=== PATIENT | female | born 1980 | race Caucasian/White ===

== ENCOUNTER → 2020-04-01 16:21 | Outpatient (CLI) | payer BC, SELFPAY ==
--- NOTE | ~2020-04-01 | MM_ITS ---
EXAMINATION: MM screening [place] [facility] w [facility] HISTORY: Screening mammogram TECHNIQUE: Craniocaudal and mediolateral oblique 3-D tomosynthesis images were obtained and synthetic 2-D images were generated. CAD analysis was submitted and interpreted. COMPARISON: No prior mammogram is available for comparison at this institution. BREAST PARENCHYMAL COMPOSITION: There are scattered areas of fibroglandular density. FINDINGS: There are mammographic asymmetries on the left, particularly in the lower inner quadrant. D iagnostic left mammogram and left breast ultrasound examination are recommended, No suspicious mass or architectural distortion, malignant calcification, skin thickening or retractio n of either breast is noted otherwise. IMPRESSION: 1. Left breast mammographic asymmetry 2. Recommend diagnostic left mammogram and left breast ultrasound examination. BI-RADS Category 0: Incomplete: Needs additional imaging evaluation. Reviewed, dictated and finalized at location A.
== END ==
PROVIDERS: Visit Provider Nurse Practitioner Obstetrics & Gynecology
DX: Z12.31 Encounter for screening mammogram for malignant neoplasm of breast (principal); R92.8 Other abnormal and inconclusive findings on diagnostic imaging of breast
CPT/HCPCS: 77063; 77067

== ENCOUNTER → 2020-04-17 08:28 | Outpatient (CLI) | payer BC, SELFPAY ==
--- NOTE | ~2020-04-17 | MMUS_ITS ---
EXAMINATION: MM diagnostic mammo unilat LT, US breast LT complete HISTORY: Follow-up left breast asymmetry TECHNIQUE: Additional 3-D tomosynthesis images of the left breast were performed and synthetic 2-D im ages were generated. CAD analysis was submitted and interpreted. High resolution complete left breast ultrasound was performed. COMPARISON: None BREAST PARENCHYMAL COMPOSITION: BREAST PARENCHYMAL COMPOSITION: There are scattered areas of fibroglandular density. FINDINGS: MAMMOGRAPHIC FINDINGS: There is a persistent focal asymmetry in the upper inner quadrant of the left breast. No suspicious c alcifications are identified. ULTRASOUND: High-resolution Limited complete left breast ultrasound: At 10:00, 6.5 cm from the nipple, there is a n irregular shaped hypoechoic mass with irregular margins measuring 11 x 8 x 5 mm. No internal vascul arity or posterior features. IMPRESSION: 1. Irregular shaped 11 mm mass of the left breast at 10:00, 6.5 cm from the nipple corresponding to t he mammographic finding. 2. Ultrasound-guided left breast biopsy recommended. BI-RADS category 4, suspicious findings. Reviewed, dictated and finalized at location A. 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 Irregular shaped 11 mm mass of the left breast at 10:00, 6.5 cm from the nip ple corresponding to the mammographic finding. 2. Ultrasound-guided left breast biopsy recommended. BI-RADS category 4, suspicious findings.
== END ==
PROVIDERS: Visit Provider Nurse Practitioner Obstetrics & Gynecology
DX: R92.8 Other abnormal and inconclusive findings on diagnostic imaging of breast (principal)
CPT/HCPCS: 76641; 77065

== ENCOUNTER 2023-03-12 09:13 | Outpatient (CLI) | payer BC, SELFPAY ==
[2023-03-12 16:35] LABS: Basophils Percent Auto 0.8 % (0.2-1.2); Eosinophils Absolute Auto 0.1 K/mm3 (0-0.3); Eosinophils Percent Auto 1.9 % (0-4.4); Hematocrit 39.3 % (37.0-47.0); Immature Granulocyte Absolute 0.01 K/mm3 (0.00-0.031); Immature Granulocyte Percent A 0.2 % (0-0.5); Lymphocytes Absolute Auto 1.79 K/mm3 (0.9-3.2); Lymphocytes Percent Auto 34.7 % (18.3-44.2); Mean Corpuscular HGB Conc 33.1 g/dl (32-36); Mean Corpuscular Hemoglobin 30.5 pg (26-34); Mean Corpuscular Volume 92.3 fl (80-100); Mean Platelet Volume 10.8 fl (7.4-10.4); Monocytes Absolute Auto 0.4 K/mm3 (0.1-0.6); Monocytes Percent Auto 7.4 % (2.6-8.5); Neutrophils Absolute Auto 2.8 K/mm3 (1.3-6.7); Platelet Count Result 221 k/mm3 (150-375); Red Blood Count 4.26 M/mm3 (4.2-5.4); Red Cell Distribution Width 11.7 % (11.5-14.5); White Blood Count 5.2 K/mm3 (4.5-10.0)
[2023-03-12 19:44] LABS: Vitamin D 25 Hydroxy 58.7 ng/mL
[2023-03-12 19:54] LABS: Alanine Aminotransferase 29 U/L (6-35); Albumin Level 4.7 g/dL (3.5-5.1); Alkaline Phosphatase 44 U/L (38-126); Anion Gap 6 mmol/L (8-16); Aspartate Amino Transferase 29 U/L (14-36); Bilirubin,Total 0.7 mg/dL (0.2-1.3); Blood Urea Nitrogen 18 mg/dL (7-17); Calcium 9.3 mg/dL (8.4-10.2); Carbon Dioxide 28 mmol/L (22-30); Chloride 104 mmol/L (98-107); Cholesterol 183 mg/dL (0-200); Estimated Glomerular Filt Rate > 60; Glucose 90 mg/dL (65-110); HDL Direct 47 mg/dL; Potassium 4.1 mmol/L (3.4-5.0); Sodium 138 mmol/L (137-145); Triglycerides 98 mg/dL (<150)
[2023-03-12 20:04] LABS: LDL Cholesterol Direct 101 mg/dL
[2023-03-12 20:34] LABS: Hemoglobin A1C 4.7 % (<5.7)
== END 2023-03-12 09:14 | disposition home or self-care (01) ==
LOC: ANHGOSHLAB 09:14
PROVIDERS: PCP Family Medicine; Visit Provider Nurse Practitioner Family
DX: I10 Essential (primary) hypertension (principal); Z13.21 Encounter for screening for nutritional disorder; Z13.29 Encounter for screening for other suspected endocrine disorder; Z00.00 Encounter for general adult medical examination without abnormal findings; Z13.220 Encounter for screening for lipoid disorders; Z13.1 Encounter for screening for diabetes mellitus
CPT/HCPCS: 36415; 80053; 80061; 82306; 83036; 84443; 85025

== ENCOUNTER 2024-08-18 09:07 | Outpatient (CLI) | payer BC, SELFPAY ==
--- OUTSIDE RECORDS SUMMARY | 2024-08-18 09:32 | XMS_ITS | Data Portability ---
Author Organization [facility] [place] Address [address] [place] [address] Care Team Providers Care Hospice Patient Care Secretary Name Role Phone EUGENIA KHALIL Primary Care Provider Assessment Encounter Date Assessment Date Assessment LastModified by Organization Details LastModified Time 02/14/2020 02/14/2020 Annual gynecological exam performed. Patient will come back in a year unless there are new symptoms. [email or web address] Not available 02/14/2020 10:12:55 02/18/2021 02/18/2021 Annual gynecological exam performed. Patient will come back in a year unless there are new symptoms. [email or web address] Not available 02/18/2021 09:49:37 03/17/2022 03/17/2022 Annual gynecological exam performed. Patient will come back in a year unless there are new symptoms. Not available 03/17/2022 09:38:37 02/22/2024 02/22/2024 Annual gynecological exam performed. Patient will come back in a year unless there are new symptoms. [email or web address] Not available 02/22/2024 09:35:32 Plan of Treatment Reminders Order Date Submit Date Provider Last Modified By Organization Details Last Modified Time Details Appointments None record ed. Lab None record ed. Referral None record ed. Procedures None record ed. Surgeries None record ed. Imaging None record ed. Medication Orders None record ed. Patient TargetsNo targets recorded. Patient Instructions Encounter Date Encounter Id Patient Instructions Last Modified By Organization Details Last Modified Time 02/14/2020 [id number] [email or web address] Not available 10:36:17 Reason for Referral None Reported. Results Created Date Observation Date Name Description Value Unit Range Abnormal Flag Note LastModifiedBy Organization Detail LastModifiedTime 02/14/20 20 02/16/2020 pap, LB Pap test thin prep Negati ve for Intrae pithel ial Lesion or Malign norberto normal ACCES RAMON #: [id number] Sourc e: Cervi madhavi/E ndoce rvica l LMP: 10/31 Date Taken : 02/13 Speci men Type: ThinP rep Vial Date Repor jorge: Clini madhavi Data: Cytot ech: Ronald Campo x, CT( CP) Date Repor jorge: Speci men Adequ acy: Satis facto ry for evalu ation Endoc ervic al/tr ansfo rmati on zone compo nent prese nt Gener al Categ oriza tion: NEGAT KIRAN FOR INTRA EPITH ELIAL LESIO N OR MALIG OKSANA This speci men has been valerie zed by the ThinP rep Imagi ng Syste m, an inter activ e compu ter syste m which piyush ts the lab in the scree ketty of ThinP rep Pap Test slide sPamela baxter imagi ng, the slide was revie wed by a Cytot echno logis t and/o r Patho logis t. D N A A S S A Y S R E P O R T TEST NAME RESUL TS ----- ---- ----- -- HPV High Risk Scree n (TMA) ThinP rep Vial The human papil lomav irus (HPV) High Risk Scree n is an FDA-a pprov ed in-vi tro ampli fied nucle ic acid test for the quali tativ e detec tion of E6/E7 viral mRNA. Resul ts shoul d be corre lated with patie nt prese ntati on, histo ry, cervi madhavi cytol ogy and other clini madhavi and labor atory findi ngs. See https ://SitScape/s ites/ defau lt/fi les/2 018-0 3/AW- 43880 _002_ 01.pd f for furth er infor matio n. Test perfo rmed by [facility], d/b/a [facility], [address], [place] [address] , Malika Davies ra, DO, Labor Pollen [facility] tor. HPV High Risk *HPV NOT DETEC JORGE (TYPE S 16, 18, 31, 33, 35, 39, 45, 51, 52, 56, 58, 59, 66, 68) *HPV: The human papil lomav irus (HPV) High Risk Griselda dyer is an FDA-a pprov ed in-vi tro ampli fied nucle ic acid test for the quali tativ e detec tion of E6/E7 viral mRNA. Resul ts shoul d be corre lated with patie nt prese ntati on, histo ry, cervi madhavi cytol ogy and other clini madhavi and labor atory findi ngs. See https ://SitScape/s ites/ defau lt/fi les/2 018-0 3/AW- 24038 _002_ 01.pd f for [facility] tae infor kailavignesh gomez. Test perfo rmed by [facility], d/b/a [employer], [address], [place] [address] , Malika Davies ra, DO, Labor Pollen [facility] tor. End of t Techn ical servi ivon provi ded by [facility] [facility], d/b/a [employer] [employer] [facility], [address] [place] [address] Kervin Cooley MD, [facility]. Case revie wed and diagn osis rende red at [facility], d/b/a [employer] [employer] [facility], [address] [place] [address] Kervin Cooley MD, [facility]. CONFI DENTI AL Not Available [facility] ([facility]) [address], [place], [address], 02/16/2020 09:23:04 02/14/20 20 02/15/2020 HPV DNA, high- risk HPV high risk NOT DETECT ED normal Not Available [facility] ([facility]) [address], [place], [address], 02/16/2020 09:23:04 02/19/20 21 02/18/2021 IMAGE GUIDE D PAP AND HPV REGAR DLESS image guided Pap, HPV regardless of Pap result SEE RESULT S BELOW CASE REPOR T: Cytol ogy Gynec ologi madhavi Repor t Case: [id number] Autho mian sarmiento Provi barbara: Javier maxi , Kristina Calderon cted: 02/18 1424 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 Order ing Locat ion: [place] Patho log[facility] Recei rodriguez: 02/19 0055 First Scree n: Aliza Naqvi ret, CT Speci men: Scree ketty Pap - Image d, Cervi x STATE MENT OF ADEQU ACY: Satis facto ry for evalu ation Trans forma tion zone compo nent prese nt FINAL DIAGN OSIS: Negat kiran for Intra epith elial Lesvignesh dyer or Sarah recinos (NIL) Elect lina guzmán mario d by Aliza Naqvi ret, CT on 021 at 2:28 PM ----- ----- ----- ----- ----- ----- ----- ----- ----- ----- ----- ----- ----- ----- ----- ----- ----- ---- HPV RESUL TS: HPV mRNA E6/E7 : No HPV mRNA Detec jorge NOTE: This high risk HPV mRNA assay detec ts fourt een high- risk HPV types (16, 18, 31, 33, 35, 39, 45, 51, 52, 56, 58, 59, 66, 68) witho ut diffe renti ation . COMME NT: Note: This speci men was revie wed by a Cytot echno logis t and/o r Patho logis t (as indic ated in this repor t) after evalu ation using the Thinp rep Imagi ng Syste m. CLINI MADHAVI INFOR MATIO N: Menst rual Statu s: LMP (if appli cable ): 021 Clini madhavi Histo ry/Pr eviou s Pap: Type of Neopl demarcus (if appli cable ): Signi fican t Clini madhavi Findi ngs: Other Histo ry: Hormo steve (if appli cable ): PAP EDUCA JOSE ALFREDO L NOTE: The Pap Test is a scree ketty test with an inher ent false negat kiran rate. Liqui d-bas e sampl ing may decre ase, but will not elimi suhas, false negat kiran resul ts. A negat kiran resul t does not precl ude the prese nce and/o r devel opmen t of disea se, since the prese nce of abnor mal cells in the sampl e depen ds on the locat ion of the lesio n and sampl ing techn ique. Joaquin nued regul ar scree ketty is the best metho d of cance r preve ntion . If repor jorge cytol ogic findi ng do not corre late with physi madhavi and/o r histo rical findi ngs, furth er inves tigat ion is recom jerry d, as clini jasiel barahona nted. 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 Elect madhukarley guzmán mario d by Aliza Naqvi ret, CT on 03/24 at 11:15 AM ----- ----- ----- ----- ----- ----- ----- ----- ----- ----- ----- ----- ----- ----- ----- ----- ----- ---- HPV RESUL TS: HPV mRNA E6/E7 : No HPV mRNA Detec jorge NOTE: This high risk HPV mRNA assay detec ts fourt een high- risk HPV types (16, 18, 31, 33, 35, 39, 45, 51, 52, 56, 58, 59, 66, 68) witho ut diffe renti ation . COMME NT: Note: This speci men was revie wed by a Cytot echno logis t and/o r Patho logis t (as indic ated in this repor t) after evalu ation using the Thinp rep Imagi ng Syste m. CLINI MADHAVI INFOR MATIO N: Menst rual Statu s: LMP (if appli cable ): Clini madhavi Histo ry/Pr eviou s Pap: Type of Neopl demarcus (if appli cable ): Signi fican t Clini madhavi Findi ngs: Other Histo ry: Hormo steve (if appli cable ): PAP EDUCA JOSE ALFREDO L NOTE: The Pap Test is a scree ketty test with an inher ent false negat kiran rate. Liqui d-bas ed sampl ing may decre ase, but will not elimi suhas, false negat kiran resul ts. A negat kiran resul t does not precl ude the prese nce and/o r devel opmen t of disea se, since the prese nce of abnor mal cells in the sampl e depen ds on the locat ion of the lesio n and sampl ing techn ique. Joaquin nued regul ar scree ketty is the best metho d of canche r preve ntion . If repor jorge cytol ogic findi ng do not corre late with physi madhavi and/o r histo rical findi ngs, furth er inves tigat ion is recom jerry d, as clini jasiel barahona nted. Not Available [facility] [address], [place], [address], 03/24/2022 12:17:27 02/22/20 24 02/22/2024 IMAGE GUIDE D PAP AND HPV REGAR DLESS image guided Pap, HPV regardless of Pap result SEE RESULT S BELOW CASE REPOR T: Cytol ogy Gynec ologi madhavi Repor t Case: [id number] Autho mian torsten Provi barbara: Emily Griffith MD Colle cted: 02/21 0921 Order ing Locat ion: [place] Patho [facility] Recei rodriguez: 02/22 1005 First Grisleda n: Jeanette Murphy een: Yanely Dunn, CT Speci men: Griselda ketty Pap - Image d, Cervi x STATE MENT OF ADEQU ACY: UNSAT ISFAC TORY SPECI MEN ----- ----- ----- ----- ----- ----- ----- ----- ----- ----- ----- ----- ----- ----- ----- ----- ----- ---- FINAL DIAGN OSIS: Unsat isfac tory for evalu ation . Inade quate squam ous epith elial compo nent for diagn osis. Elect lina parkse d by Yanely Dunn, CT on 2023 at 7:52 AM ----- ----- ----- ----- ----- ----- ----- ----- ----- ----- ----- ----- ----- ----- ----- ----- ----- ---- HPV RESUL TS: HPV mRNA E6/E7 : No HPV mRNA Detec jorge NOTE: This high risk HPV mRNA assay detec ts fourt een high- risk HPV types (16, 18, 31, 33, 35, 39, 45, 51, 52, 56, 58, 59, 66, 68) witho ut diffe renti ation . COMME NT: This speci men was revie wed by a Cytot echno logis t and/o r Patho logis t (as indic ated in this repor t) after evalu ation using the Thinp rep Imagi ng Syste m. NOTE: A repro cessi ng proce dure was perfo rmed and the addit ional slide confi rocio the diagn osis of [facility] for evalu ation . CLINI MADHAVI INFOR MATIO N: Menst rual Statu s: LMP (if appli cable ): Clini madhavi Histo ry/Pr eviou s Pap: Type of Neopl demarcus (if appli cable ): Signi fican t Clini madhavi Findi ngs: Other Histo ry: Hormo steve (if appli cable ): Not Available [facility] (Lab) [address], [place], [address], 03/03/2024 08:57:42 04/01/20 20 04/01/2020 MAMMO , scree ketty, bilat eral No observ ation record ed. [facility] [address], [place], [address], 04/03/2020 09:46:18 04/02/20 20 04/01/2020 MAMMO , scree ketty, bilat eral No observ ation record ed. KIARA [place] [facility] [address], [place], [address], 04/03/2020 09:46:19 04/17/20 20 04/17/2020 MAMMO , diagn ostic , unila teral No observ ation record ed. [facility] [address], [place], [address], 04/19/2020 16:08:23 04/18/20 20 04/17/2020 MAMMO , diagn ostic , unila teral No observ ation record ed. [facility] [address], [place], [address], 04/19/2020 16:08:23 05/29/20 20 05/29/2020 biops y, breas t (PROC ) No observ ation record ed. [address], [address], 05/30/2020 11:59:10 05/29/20 20 05/29/2020 biops y, breas t (PROC ) No observ ation record ed. [address], [address], 05/30/2020 11:59:47 06/04/20 20 05/29/2020 biops y, breas t (PROC ) No observ ation record ed. [address], [address], 06/11/2020 18:16:27 06/04/20 20 05/29/2020 biops y, breas t (PROC ) No observ ation record ed. [address], [address], 06/11/2020 18:15:46 04/02/20 21 04/02/2021 MAMMO , diagn ostic , unila teral No observ ation record ed. [facility] [address], [place], [address], 04/02/2021 16:28:37 04/02/20 21 04/02/2021 MAMMO , diagn ostic , unila teral No observ ation record ed. [facility] [address], [place], [address], 04/03/2021 11:44:57 Result Notes None recorded. Problems Name Problem SNOMED Code Status Onset Date Resolution Date Notes Provider Name and Address Organization Details Recorded Time SNOMED CT Concept Completed 201802/18/2021 Encntr for general adult medical exam w/o abnormal findings ;Recorde d Elsewher e: No Locat ion: [facility] S ource: [employer] [employer] alem: N Jennyferti ce ID: 0001 Jg lable Time: 08:30:00 AM Claritza Marley [facility] 09:56:05 Removal of intraute rine device Completed 201302/18/2021 REMOVAL OF IUD;Timbo rded Elsewher e: No Locat ion: [facility] S ource: [facility] alem: N Jennyferti ce ID: 0001 Jg lable Time: 01:45:00 PM Claritza Marley [facility] 09:56:00 Contrace ptive sheath status [id number] Completed 201802/18/2021 Encounte r for routine checking of intraute rine contrace p dev;Timbo rded Elsewher e: No Locat ion: [facility] N Jennyferti ce ID: 0001 Jg lable Time: 08:15:00 AM Claritza Marley [facility] 1 09:55:40 Uses IUD (intraut erine device) contrace ption [id number] Completed 201302/18/2021 Surveill ance of intraute rine contrace ptive device;R ecorded Elsewher e: No Locat ion: [facility] S ource: [facility] alem: N Jennyferti ce ID: 0001 Jg lable Time: 03:45:00 PM Claritza Marley [facility] [address] 09:55:[address] Concept Completed 201602/18/2021 Well woman check w/o abnormal finding; Recorded Elsewher e: No Locat ion: [facility] S ource: [employer] alem: N Practi ce ID: 0001 Jg lable Time: 08:30:00 AM Claritza murray [facility] 1 09:56:07 Increase d frequenc y of urinatio n [id number] Completed 201402/18/2021 Urinary frequenc y;Record ed Elsewher e: No Locat ion: [facility]: N Practi ce ID: 0001 Jg lable Time: 08:30:00 AM Claritza murray [facility] 1 09:55:47 Contusio n of trunk [id number] Completed 201602/18/2021 Contusio n of lower back and pelvis, sequela; Recorded Elsewher e: No Locat ion: [facility]: N Practi ce ID: 0001 Jg lable Time: 08:30:00 AM Claritza murray [facility] 1 09:55:42 Dysfunct ional uterine bleeding Completed 201302/18/2021 Unspecif ied disorder s of menstrua tion and other abnormal bleeding from female genital tract;Re corded Elsewher e: No Locat ion: [facility]: N Practi ce ID: 0001 Jg lable Time: 03:45:00 PM Claritza murray [facility] 1 09:55:45 Speciali zed medical examinat ion Completed 201102/18/2021 Routine gynecolo gical examinat ion;Prac adamaris ID: 0001 Claritza murray [facility] 1 09:56:09 Screenin g for malignan t neoplasm of cervix Completed 201102/18/2021 Pap Smear;Pr actice ID: 0001 Claritza murray [facility] 1 09:56:03 Insertio n of intraute rine contrace ptive device Completed 201302/18/2021 INSERTIO N OF IUD;Prac adamaris ID: 0001 Claritza murray [facility] 1 09:55:50 Pregnanc y test negative [id number] Completed 201302/18/2021 Negative Pregnanc y Test;Pra ctice ID: 0001 Claritza murray [facility] 09:55:57 Overweig ht [id number] Completed 201402/18/2021 Overweig ht;Pract ice ID: 0001 Claritza Marley [facility] 09:55:55 Problem Notes None recorded. Procedures Surgical History Date Name Laterality Status Provider Name and Address Organization Details Recorded Time 3 Date of Last Mammogram completed Denise Nathan [facility] 02/22/2024 09:36:35 1 completed [facility] 03/17/2022 09:39:21 1 Date of Last Pap Smear completed [facility] 03/17/2022 09:41:46 0 biopsy of breast completed Claritza Marley [facility] 02/18/2021 18:49:00 9 Dilation and Curettage completed Claritzayanna Marley [facility] 02/18/2021 18:48:43 7 Laparotomy completed Claritza Marley [facility] 02/18/2021 18:48:11 Dilation and [facility]ttage [facility] 03/17/2022 09:39:26 Laparotomy completed Winifredrodo Chilel [facility] 03/17/2022 09:39:26 Imaging Results Imaging Date Name Status LastModified by Organiz ation Details LastModified Time 04/01/2020 MAMMO, screening, bilateral completed [facility] [address], [place], [address], 04/03/2020 09:46:18 04/01/2020 MAMMO, screening, bilateral completed [facility] [address], [place], [address], 04/03/2020 09:46:19 04/17/2020 MAMMO, diagnostic, unilateral completed [facility] [address], [place], [address], 04/19/2020 16:08:23 04/17/2020 MAMMO, diagnostic, unilateral completed [facility] [address], [place], [address], 04/19/2020 16:08:23 05/29/2020 biopsy, breast (PROC) completed [address], [address], 05/30/2020 11:59:10 05/29/2020 biopsy, breast (PROC) completed [address], [address], 05/30/2020 11:59:47 05/29/2020 biopsy, breast (PROC) completed [address], [address], 06/11/2020 18:16:27 05/29/2020 biopsy, breast (PROC) completed [address], [address], 06/11/2020 18:15:46 04/02/2021 MAMMO, diagnostic, unilateral completed [facility] [place] [facility] [address], [place], [address], 04/02/2021 16:28:37 04/02/2021 MAMMO, diagnostic, unilateral completed KIARA [place] [facility] [address], [place], [address], 04/03/2021 11:44:57 Procedure Notes None recorded. Medical Equipment None Reported. Allergies No known drug allergies Medications Name Sig Start Date Stop Date Status Note LastModified by Organization Details LastModified Time Mirena 21 mcg/24 hr (up to 8 years) 52 mg intrauter ine device Take by intraute rine route. 2018 active Not Available Not Available Not Avai lable Macrobid 100 mg capsule take 1 capsule by oral route every 12 hours with food, as directed 11/08 completed Prescrib ed Elsewher e: No Locat ion: [facility] odify By: edilia nguyen DateTime : 12/13/19 08:45:39 AM Not Available Not Available Not Available Metrogel Vaginal 0.75 % (37.5 mg/5 gram) insert 1 applicat orful (37.5MG) by vaginal route every day at bedtime 12/04 completed Prescrib ed Elsewher e: No Locat ion: [facility] odify By: brianna dye DateTime : 08/20/19 12 10:39:54 AM Not Available Not Available Not Available Vitals Date Recorded Body height Body mass index (BMI) Body weight Provider Name and Address Organization Details Last Updated DateTime 02/18/2021 160.66 cm 32.2 kg/m2 22988.4 g Claritza Marley [facility] 02/18/2021 09:51:39 Date Recorded Systolic blood pressure Diastolic blood pressure Provider Name and Address Organization Details Last Updated DateTime 02/18/2021 128 mm[Hg] 80 mm[Hg] Ignacia Goins EMILY- [address], [place], [address], [facility] 02/18/2021 10:04:22 Date Recorded Body height Body mass index (BMI) Body weight Systolic blood pressure Diastolic blood pressure Provider Name and Address Organization Details Last Updated DateTime 03/17/2022 162.56 cm 30.4 kg/m2 07534.85 g 124 mm[Hg] 70 mm[Hg] Winifred Chilel [facility] 2 09:39:14 Date Recorded Body height Body mass index (BMI) Body weight Systolic blood pressure Diastolic blood pressure Provider Name and Address Organization Details Last Updated DateTime 02/14/2020 162.56 cm 29.7 kg/m2 49291.48 g 121 mm[Hg] 81 mm[Hg] Lashell Campos [facility] 0 10:24:46 Date Recorded Body height Body mass index (BMI) Body weight Systolic blood pressure Diastolic blood pressure Provider Name and Address Organization Details Last Updated DateTime 02/22/2024 162.56 cm 30 kg/m2 75386.66 g 124 mm[Hg] 80 mm[Hg] Denise Nathan [facility] 4 09:35:54 Social History Question Answer Notes LastModified by Organizat ion Details LastModified Time Tobacco Smoking Status Never Smoker Josekim Burt terri, [facility] 03/17/2022 09:18:06 Do You Have An Advance Directive? No Information not available 02/18/2021 What Is Your Level Of Alcohol Consumption? Occasional [email or web address] Information not available 02/18/2021 Are You Blind Or Do You Have Difficulty Seeing? No [email or web address] Information not available 02/18/2021 What Is Your Level Of Caffeine Consumption? Moderate [email or web address] Information not available 02/18/2021 How Much Tobacco Do You Chew? None Information not available 02/18/2021 In The 14 Days Before Symptom Onset, Have You Had Close Contact With A [facility] While That Case Was Ill? No [email or web address] Information not available 02/18/2021 In The 14 Days Before Symptom Onset, Have You Had Close Contact With A Person Who Is Under Investigation For COVID-19 While That Person Was Ill? No [email or web address] Information not available 02/18/2021 Have You Been To An Area Known To Be High Risk For COVID-19? No [email or web address] Information not available 02/18/2021 Are You Deaf Or Do You Have Serious Difficulty Hearing? No [email or web address] Information not available 02/18/2021 What Type Of Diet Are You Following? REGULAR [email or web address] Information not available 02/18/2021 What Is The Highest Grade Or Level Of School You Have Completed Or The Highest Degree You Have Received? 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 No [email or web address] Information not available 02/18/2021 Do You Use Protection During Sex? No [email or web address] Information not available 02/18/2021 Do You Use Your Seat Belt Or Car Seat Routinely? Yes [email or web address] Information not available 02/18/2021 Do You Have Smoke And Carbon Monoxide Detectors In Your Home? Yes Information not available 02/18/2021 How Much Tobacco Do You Smoke? No [email or web address] Information not available 02/18/2021 Do You Feel Stressed (tense, Restless, Nervous, Or Anxious, Or Unable To Sleep At Night)? [id number] [email or web address] Information not available 02/18/2021 Do You Use Any Illicit Or Recreational Drugs? No [email or web address] Information not available 02/18/2021 Do You Use Sunscreen Routinely? Yes [email or web address] Information not available 02/18/2021 Have You Used IV Drugs? No [email or web address] Information not available 02/18/2021 Sex: Unknown Functional Status Question Answer Note LastModified by Organizat ion Details LastModified Time Do you have difficulty walking or climbing stairs? No Information not available 03/17/2022 Are you able to walk? YESWOREST [email or web address] Information not available 02/18/2021 Are you able to care for yourself? Yes Information not available 03/17/2022 Do you have difficulty dressing or bathing? No Information not available 03/17/2022 What is your exercise level? Moderate [email or web address] Information not available 02/18/2021 Mental Status None recorded. Family History Relationship Description Onset Age of this Age Resolved Age Notes LastModified by Organization Details LastModified Time Maternal Grandfather Diabetes mellitus [email or web address] Not available 2019 10:15:21 Maternal Grandfather Acute stroke [email or web address] Not available 02/22/2024 09:29:16 Maternal Grandfather Myocardial infarction [email or web address] Not available 12/2020 18:47:12 Maternal Grandmother Diabetes mellitus [email or web address] Not available 2019 10:15:21 Paternal Grandfather Myocardial infarction [email or web address] Not available 02/13 10:15:49 Paternal Grandfather Congestive heart failure [email or web address] Not available 2023 09:29:16 Paternal Grandfather Heart disease [email or web address] Not available 2019 10:16:12 Paternal Grandfather Acute stroke [email or web address] Not available 02/22/2024 09:29:16 Paternal Grandfather Hypertensive disorder [email or web address] Not available 2019 10:16:33 Paternal Grandfather Hyperlipidem ia [email or web address] Not available 2023 09:29:16 Paternal Grandmother Chronic obstructive pulmonary disease [email or web address] Not available 2023 09:29:16 Medical History Condition Response Allergies (Food, seasonal, environmental ) N Other N Breast Cancer N Drug/Latex Allergies/Reactions N Blood Transfusion Y Dermatologic Disorders N Lung Disease N Defects or Inherited Disease N Breast Problem N Gestational Diabetes N Hematologic disorders N Anesthesia Complications N History of STI N Deep Vein Thrombosis N Polycystic ovary syndrome N Anxiety Disorder N Autoimmune disease N Arthritis N Infertility N Polyps N Acid Reflux (GERD) N History of abnormal pap N Cancer N Stroke N Varicosities N Neurologic/Epilepsy N Endometriosis N High Cholesterol N Headaches N Fibromyalgia N Kidney Disease N Heart Problems N Kidney or Bladder Problems N Thyroid Problems N GI Problems Y Eating Disorder N Anemia N Art (IVF or FET) N Psychiatric Illness N Ovarian Cancer N Diabetes N Pulmonary (TB, Asthma) N Hepatitis/Liver Disease N No Past Medical History N Eczema N Urinary Tract Infection N Abuse/Domestic Violence N Asthma N Trauma/Violence N Depression/ depression N Heart Disease N Pre-Eclampsia N Hypertension N Osteoporosis N Thrombophilias N Gynecological History Statement/Question Response Abnormal Pap N Date of Last Mammogram 05/21/2023 Flow Light Date of LMP 02/12/2022 On BCP's at Conception? N N STIs/STDs N HPV Vaccine N 03/14/2021 Current Control Method IUD Age at First Child 26 Sexually Active? Y IUD Menses Monthly N Age of first menstrual cycle 9 Date of Last Pap Smear 02/18/2021 Sexual Problems? N Desired Control Method IUD LMP Approximate N Obstetrics History GPAL:G 2 P 2 0 0 2 Type Value Full Term 2 Living 2 Total 2 Past Encounters Encounter ID Performer Location Encounter Start Date Encounter Closed Date Diagnosis/Indication Diagnosis SNOMED-CT Code Diagnosis ICD10 Code Diagnosis Note [id number] Ignacia Goins , [facility] [address] [address] 02/14/2020 10:08:57 02/14/2020 11:00:04 Gynecologic examination 30227579 Z01.419 Suggested Calcium with Vitamin D 1200-1500m g daily. Patient advised to get an annual flu shot in the fall and she could obtain at [facility] or [facility] clinic. Also to obtain TDap vaccinatio n if you have not had one in the last 10 years. Recommend yearly mammograms . Encouraged monthly self breast exams. Encourage safe sexual practices, to use condoms and limit partners if not already in a monogamous relationsh ip. Engage in daily exercise of low impact aerobic exercise 45-60 minutes 4-5 times weekly. Avoid tobacco and illicit drugs as well as using moderation with alcohol intake less than 1-2 8 oz beverages daily. This lifestyle behavior pattern will lead to less health conditions and longer life span. If BMI greater than 25 weight watchers or dietary consult advised. All questions have been answered. Patient appears to understand informatio n, but if you have any questions please call or respond to this email. [id number] Ignacia Goins , [facility] [address] [address] 02/18/2021 09:17:01 02/18/2021 10:39:44 Gynecologic examination [id number] Z01.419 Suggested Calcium with Vitamin D 1200-1500m g daily. Patient advised to get an annual flu shot in the fall and she could obtain at [facility] or [facility] care clinic. Also to obtain TDap vaccinatio n if you have not had one in the last 10 years. Recommend yearly mammograms . Encouraged monthly self breast exams. Encourage safe sexual practices, to use condoms and limit partners if not already in a monogamous relationsh ip. Engage in daily exercise of low impact aerobic exercise 45-60 minutes 4-5 times weekly. Avoid tobacco and illicit drugs as well as using moderation with alcohol intake less than 1-2 8 oz beverages daily. This lifestyle behavior pattern will lead to less health conditions and longer life span. If BMI greater than 25 weight watchers or dietary consult advised. All questions have been answered. Patient appears to understand informatio n, but if you have any questions please call or respond to this email. Pap/hpv sentMammo diag scheduledS TD declined [id number] Ignacia Goins , [facility] [address] [address] 03/17/2022 09:17:55 03/17/2022 10:08:36 Gynecologic examination [id number] Z01.419 Z11.51 Suggested Calcium with Vitamin D 1200-1500m g daily. Patient advised to get an annual flu shot in the fall and she could obtain at [facility] or [facility] care clinic. Also to obtain TDap vaccinatio n if you have not had one in the last 10 years. Recommend yearly mammograms . Encouraged monthly self breast exams. Encourage safe sexual practices, to use condoms and limit partners if not already in a monogamous relationsh ip. Engage in daily exercise of low impact aerobic exercise 45-60 minutes 4-5 times weekly. Avoid tobacco and illicit drugs as well as using moderation with alcohol intake less than 1-2 8 oz beverages daily. This lifestyle behavior pattern will lead to less health conditions and longer life span. If BMI greater than 25 weight watchers or dietary consult advised. All questions have been answered. Patient appears to understand informatio n, but if you have any questions please call or respond to this email. Pap/hpv sent STD Screen declined Genetic Screen discussed Colon Screen na Dexa Screen na Routine Labs PCPMammo orderedA Mirena IUD prevents for up to 8 years, and also helps with heavy periods for up to 5 years in women who choose an IUD for control. [id number] REMINGTON HOPKINS MD [place] [address] [address] 02/22/2024 09:28:32 02/22/2024 10:50:21 Gynecologic examination [id number] Z01.419 [facility]- Cervical cancer screening: Pap smear obtained today, will follow up on the results with the patient as they become available- Breast cancer screening: mammogram completed 05/2023, patient to schedule next mammo with [facility]- Colon cancer screening: does not qualify- STD screening: declined- hereditary cancer screening: does not qualify for testing- contracept ion: Mirena IUD placed 2018 Health Concerns Section Related Observation LastModified by Organization Detai ls LastModified Time None Recorded Concern Status LastModified by Organization Details LastModified Time None Recorded Advance Directives Directive N: Payers Encounter Date Sequence Insurance Name Policy Number Policy Murphy Covered Member ID Murphy Member ID Guarantor Name 02/14/2020 1 [place] [id number] Sherif Cantorols [id number] 20 Santiago Melara 02/18/2021 1 [place] [id number] Sherif Melara [id number] 20 Santiago Cantorols 03/17/2022 1 [place] [id number] Sherif Cantorols [id number] 20 Santiago Melara 02/22/2024 1 [place] [id number] Sherif Cantorols [id number] 20 Snatiago Kelton Notes Date Note Type Note Provider Name and Address Organization Details Recorded Time 02/14/2020 text/html Annual GYNReport ed bypatient.History: no gynecologic complaints Menstrual cycle:Normal menses Urinary symptoms:No hematuria; No incontinence Vulva:No genital lesion Vagina:Normal vaginal discharge Breast:No breast pain; No breast lump; No nipple discharge Current Contraception:Sati sfied with current contraception; Monogamous relationship; Intrauterine device (iud) Sexual complaints:No sexual complaints; No pain during intercourse; Normal libido Menopausal Symptoms:No menopausal symptoms; Normal vaginal lubrication Psychological symptoms:No depression; No anxiety; No PMDD Preventive measures:Encourage self breast examination; Encourage regular exercise; Encourage no tobacco use; Encourage regular mammograms starting age 40; Followed with Q3 year pap smear and high risk HPV typing; Needs to schedule mammogram [address] [place], [address], [facility] 02/14/2020 10:36:56 02/18/2021 text/html Annual GYNReport ed bypatient.History: no gynecologic complaints Menstrual cycle:Normal menses (Amenorrheic on IUD) Urinary symptoms:No hematuria; No incontinence Vulva:No genital lesion Vagina:Normal vaginal discharge Breast:No breast pain; No breast lump; No nipple discharge Current Contraception:Sati sfied with current contraception; Monogamous relationship; Intrauterine device (iud) Sexual complaints:No sexual complaints; No pain during intercourse; Normal libido Menopausal Symptoms:No menopausal symptoms; Normal vaginal lubrication Psychological symptoms:No depression; No anxiety; No PMDD Preventive measures:Encourage self breast examination; Encourage regular exercise; Encourage no tobacco use; Encourage regular mammograms starting age 40; Followed with Q3 year pap smear and high risk HPV typing; Needs to schedule mammogram [address], [place], [address], [facility] 02/18/2021 10:08:35 03/17/2022 text/html Annual GYNReport ed bypatient.History: no gynecologic complaints Menstrual cycle:Normal menses Urinary symptoms:No hematuria; No incontinence Vulva:No genital lesion Vagina:Normal vaginal discharge Breast:No breast pain; No breast lump; No nipple discharge Current Contraception:Sati sfied with current contraception; Intrauterine device (iud) Sexual complaints:No sexual complaints; No pain during intercourse; Normal libido Menopausal Symptoms:No menopausal symptoms; Normal vaginal lubrication Psychological symptoms:No depression; No anxiety; No PMDD Preventive measures:Encourage self breast examination; Encourage regular exercise; Encourage no tobacco use; Encourage regular mammograms starting age 40; Followed with yearly pap smears; Needs to schedule mammogram [address], [place], [address], [facility] 03/17/2022 09:54:10 02/22/2024 text/html Presents today f or her annual well-woman exam. Denies abnormal vaginal discharge. She is sexually active and denies dyspareunia. She is using Mirena IUD for contraception, and she states that she is satisfied with this method. She has not noticed any changes or masses in her breasts. Irregular spotting with IUD. No menopausal symptoms. Last mammogram 05/2023 BIR[facility] 1. REMINGTON HOPKINS MD [address], [place], [address], [facility] 02/22/2024 10:08:25 OBGyn Episode Ob Episode Information Episode Created Date Number of Fetuses Patient Bloodtype Patient rh Status Prepregnancy Weight lbs Domestic Partner Domestic Partner Phone Father Name House Coordinator Status 02/14/20 20 1 CLOSED Fetus Data First Name Last Name Admitted to NICU Weight (g) Sex Living Outcome Pediatric Complications Fetus ID Race Codes Race Delivery Type 3401.94 F Full Term 4219 Vaginal Delivery Shahzad Calculation Initial Shahzad Date Initial Exam Date Initial Exam Provider Initial Ultrasound Date Last Menstrual Period Date Ultra Sound Weeks Gestation 0 Eighteen To Twenty Week Shahzad Update Ultra Sound Date Fundal Height At Umbil Quickening Date Ultra Sound Latest Weeks Gestation Final Shahzad Confirmed By Final Shahzad Confirmed Date Final Shahzad Date Ultra Sound Latest Days Gestation 0 0 Menstrual History Last Menstrual Date Menses Monthly On Bcp Conception Prior Menses Frequency Hcg Plus Date Menarche Onset Age Delivery Information Delivery Date Delivery Type Labor Anesthesia Weeks Gestation Incision Type Labor Labor Length Hrs Delivered By Post Complications Tubal Sterilization Discharge Date Comments 7 39 bowel resection for ruptured diverticu li Discharge Information Feeding Method Contraceptive Method Maternal HG B and HCT Levels Ob Episode Information Episode Created Date Number of Fetuses Patient Bloodtype Patient rh Status Prepregnancy Weight lbs Domestic Partner Domestic Partner Phone Father Name House Coordinator Status 02/14/20 20 1 CLOSED Fetus Data First Name Last Name Admitted to NICU Weight (g) Sex Living Outcome Pediatric Complications Fetus ID Race Codes Race Delivery Type 4053.75 1704 F Full Term 4220 Vaginal Delivery Shahzad Calculation Initial Shahzad Date Initial Exam Date Initial Exam Provider Initial Ultrasound Date Last Menstrual Period Date Ultra Sound Weeks Gestation 0 Eighteen To Twenty Week Shahzad Update Ultra Sound Date Fundal Height At Umbil Quickening Date Ultra Sound Latest Weeks Gestation Final Shahzad Confirmed By Final Shahzad Confirmed Date Final Shahzad Date Ultra Sound Latest Days Gestation 0 0 Menstrual History Last Menstrual Date Menses Monthly On Bcp Conception Prior Menses Frequency Hcg Plus Date Menarche Onset Age Delivery Information Delivery Date Delivery Type Labor Anesthesia Weeks Gestation Incision Type Labor Labor Length Hrs Delivered By Post Complications Tubal Sterilization Discharge Date Comments 9 39 post hemorrage / transfusi on / D&C Discharge Information Feeding Method Contraceptive Method Maternal HG B and HCT Levels
--- OUTSIDE RECORDS SUMMARY | 2024-08-18 09:32 | XMS_ITS | Referral Summary ---
Author Organization [facility] Address [address] [place] [address] Care Team Providers Care Tufting Machine Operator Name Role Phone Unknown, Notinfile Primary Care Provider Unavail able Encounters Date Type Department Care Team Description 07/18/2024 8:00 AM PAYROLL CONSULTANT Procedure visit [facility] Otolaryngology [address] [place] [address] [facility] [address] [place] [address] [place] [address] Perlita Campos Au.D. Benign paroxysmal positional vertigo, unspecified laterality 07/07/[address] [facility] Otolaryngology [address] [place] [address] [facility] [address] [place] [address] [place] [address] Perlita Campos Au.D. Benign paroxysmal positional vertigo, unspecified laterality (Primary Dx) 07/07/[address] [facility] Otolaryngology [address] [place] [address] Medicine [address]th [place] [address] [place] [address] Perlita Campos Au.D. 07/04/2024 8:30 AM PAYROLL CONSULTANT - 07/04/2024 11:59 PM PAYROLL CONSULTANT Hospital Encounter [facility] [address] [place] [id number] Screening mammogram, encounter for Discharge Disposition: Discharge to home or self care from Last 3 Months Allergies No known active allergies Medications levonorgestreL (MIRENA) IUD Mirena 20 mcg/24 hours (6 yrs) 52 mg intrauterine device Take by intrauterine route. Active Active Problems Problem Noted Date Diagnosed Date Abnormal findings on diagnostic imaging of everardo camacho 04/02/2021 Social History Tobacco Use Types Packs/Day Years Used Date Smoking Tobacco: Never Comments No Sex and Gender Information Value Date Recorded Sex Assigned at Not on file Legal Sex Female 9:11 AM PAYROLL CONSULTANT Gender Identity Female 04/01/2021 10:27 AM CDT Sexual Orientation Straight 04/01/2021 10 :27 AM CDT Last Filed Vital Signs Vital Sign Reading Time Taken Comments Blood Pressure 118/88 06/23/2021 12:57 PM PAYROLL CONSULTANT Pulse 88 06/23/2021 12:57 PM PAYROLL CONSULTANT Temperature 36.7 C (98.1 F) 06/23/2021 12:57 PM PAYROLL CONSULTANT Respiratory Rate 16 06/23/2021 12:57 PM PAYROLL CONSULTANT Oxygen Saturation 99% 06/23/2021 12:57 PM PAYROLL CONSULTANT Inhaled Oxygen Concentration - - Weight 81.4 kg (179 lb 6.4 oz) 06/23/2021 12:57 PM PAYROLL CONSULTANT Height 160 cm (5' 3 ) 06/23/2021 12:57 PM PAYROLL CONSULTANT Body Mass Index 31.78 06/23/2021 12:57 PM PAYROLL CONSULTANT Plan of Treatment Not on file Procedures Procedure Name Priority Date/Time Associated Diagnosis Comments SCREENING MAMMOGRAM BILATERAL W OPAL Schedule Routine, Read Routine (OP Routine) 07/04/2024 8:52 AM PAYROLL CONSULTANT Screening mammogram, encounter for from Last 3 Months Results * Screening Mammogram Bilateral W Opal (07/04/2024 8:52 AM PAYROLL CONSULTANT) Anatomical Region Laterality Modality Breast Bilateral Mammography Narrative 07/05/2024 8:29 AM PAYROLL CONSULTANT Mammogram Technique: Bilateral Digital Breast Tomosynthesis, Bilateral C-view 2D Screening mammogram. Views obtained: bilateral craniocaudal and bilateral mediolateral oblique. Computer Aided Detection was performed. Mammogram Findings: The present examination has been compared to prior imaging studies performed at [facility] on 04/17/2022, 05/21/2023 and 06/15/2023. There are scattered areas of fibroglandular density. There is no suspicious abnormality in either breast. Impression: There is no mammographic evidence of malignancy. Annual screening mammography is recommended. OVERALL FINAL ASSESSMENT: BI-RADS CATEGORY 1: Negative. Procedure Note Claritza Singh MD - 07/05/2024 Mammogram Technique: Bilateral Digital Breast Tomosynthesis, Bilateral C-view 2D Screening mammogram. Views obtained: bilateral craniocaudal and bilateral mediolateral oblique. Computer Aided Detection was performed. Mammogram Findings: The present examination has been compared to prior imaging studies performed at [facility] on 04/17/2022, 05/21/2023 and 06/15/2023. There are scattered areas of fibroglandular density. There is no suspicious abnormality in either breast. Impression: There is no mammographic evidence of malignancy. Annual screening mammography is recommended. OVERALL FINAL ASSESSMENT: BI-RADS CATEGORY 1: Negative. us Self Screening Mammogram IMG MAMMO PROCEDURES Fi nal Result from Last 3 Months Insurance [facility] Care Teams Tufting Machine Operator Relationship Specialty Start Date End Date Unknown, Notinfile PCP - General 05/13/23
--- OUTSIDE RECORDS SUMMARY | 2024-08-18 09:32 | XMS_ITS | Referral Summary ---
Author Organization [facility] [employer] Address [address] [place] [address] Care Team Providers Care Marketing Representative Name Role Phone Bronwyn Love MD Primary Care Provider [phone] Source Comments [facility] [employer],non-owned Affiliates and Associated Physician Practices is amultiple site organization consisting of ambulatory clinics and hospital sitesin [place] and [place]. This disclosure is being madepursuant to the Care Everywhere program and may not contain all information available regarding this patient. Last updated 18.[facility] Allergies No known active allergies Medications * Be aware that medications may not be up to date on this document. Alwaysverify current medications with the patient. Medication Sig Dispensed Refills Start Date End Date Status fluticasone propionate (FLONASE) 50 MCG/ACT nasal spray [place] 2 sprays into each nostril once daily 1 bottles 07/21/2017 Active Active Problems No known active problems Social History Tobacco Use Types Packs/Day Years Used Date Smoking Tobacco: Never Sex and Gender Information Value Date Recorded Sex Assigned at Not on file Gender Identity Not on file Sexual Orientation Not on file Last Filed Vital Signs Vital Sign Reading Time Taken Comments Blood Pressure 102/60 07/30/2017 12:24 PM INDUSTRIAL RELATIONS WORKER Pulse 101 07/30/2017 12:24 PM INDUSTRIAL RELATIONS WORKER Temperature 37.7 C (99.8 F) 07/30/2017 12:24 PM INDUSTRIAL RELATIONS WORKER Respiratory Rate 16 05/06/2016 11:41 AM INDUSTRIAL RELATIONS WORKER Oxygen Saturation 99% 05/06/2016 11:41 AM INDUSTRIAL RELATIONS WORKER Inhaled Oxygen Concentration - - Weight 72.6 kg (160 lb) 07/30/2017 12:24 PM INDUSTRIAL RELATIONS WORKER Height 160 cm (5' 3 ) 07/30/2017 12:24 PM INDUSTRIAL RELATIONS WORKER Body Mass Index 28.34 07/30/2017 12:24 PM INDUSTRIAL RELATIONS WORKER Plan of Treatment Not on file Care Teams Marketing Representative Relationship Specialty Start Date End Date Bronwyn Love MD PCP - General Family Medicine 05/06/16
--- OUTSIDE RECORDS SUMMARY | 2024-08-18 09:32 | XMS_ITS | Clinical Summary ---
Author Organization [facility] Address [address] [place] [address] Care Team Providers Care Women Designer Name Role Phone Bronywn Love MD Primary Care Provider [phone] Source Comments [facility],non-owned Affiliates and Associated Physician Practices is amultiple site organization consisting of ambulatory clinics and hospital sitesin [place], [place], [place] and [place]. This disclosure is being madepursuant to the Care Everywhere program and may not contain all information available regarding this patient. Last updated 18.[facility] Allergies No known active allergies Medications * Be aware that medications may not be up to date on this document. Alwaysverify current medications with the patient. Medication Sig Dispensed Refills Start Date End Date Status fluticasone propionate (FLONASE) 50 MCG/ACT nasal spray [place] 2 sprays into each nostril once daily [...] Comments Blood Pressure 102/60 07/30/2017 12:24 PM HEAVY MOBILE EQUIPMENT REPAIRER Pulse 101 07/30/2017 12:24 PM HEAVY MOBILE EQUIPMENT REPAIRER Temperature 37.7 C (99.8 F) 07/30/2017 12:24 PM HEAVY MOBILE EQUIPMENT REPAIRER Respiratory Rate 16 05/06/2016 11:41 AM HEAVY MOBILE EQUIPMENT REPAIRER Oxygen Saturation 99% 05/06/2016 11:41 AM HEAVY MOBILE EQUIPMENT REPAIRER Inhaled Oxygen Concentration - - Weight 72.6 kg (160 lb) 07/30/2017 12:24 PM HEAVY MOBILE EQUIPMENT REPAIRER Height 160 cm (5' 3 ) 07/30/2017 12:24 PM HEAVY MOBILE EQUIPMENT REPAIRER Body Mass Index 28.34 07/30/2017 12:24 PM HEAVY MOBILE EQUIPMENT REPAIRER Plan of Treatment Health Maintenance Due Date Last Done Comments COLOGUARD (AGES 45-75) - COL ON CA SCREENING 1979 COLON MONITORING 1979 COLONOSCOPY - COLON CA SCREENING 1979 CT COLONOGRAPHY - COLON CA SCREENING 1979 Colorectal Cancer Screening 1979 FIT - COLON CA SCREENING 1979 FLEX SIG - COLON CA SCREENING 1979 LIPID TESTING 1979 MAMMOGRAM 1979 PAP SMEAR 1979 HIV SCREENING 1994 HEPATITIS C SCREENING 06/13/1997 DTAP/TDAP/TD VACCINES (1 - Tdap) 1998 HEPATITIS B VACCINE (1 of 3 - 19+ 3-dose series) 1998 COVID-19 VACCINE (1 - 2023-2 5 season) 2024 INFLUENZA VACCINE (#1) 2024 DEPRESSION SCREENING 06/14/2024 ZOSTER VACCINE (1 of 2) 2029 HIB VACCINE Aged Out No longer eligi ble based on patient's age to complete this topic HPV VACCINE Aged Out No longer eligi ble based on patient's age to complete this topic MENINGOCOCCAL (Group B) VACCINE Aged Out No longer eligible based on patient's age to complete this topic MENINGOCOCCAL VACCINE Aged Out No douglas consuelo eligible based on patient's age to complete this topic PNEUMOCOCCAL VACCINE Aged Out No long er eligible based on patient's age to complete this topic Care Teams Women Designer Relationship Specialty Start Date End Date Bronwyn Love MD [phone] (work) PCP - General Family Medicine 05/06/16
--- OUTSIDE RECORDS SUMMARY | 2024-08-18 09:32 | XMS_ITS | Clinical Summary ---
Author Organization [facility] Address [address] [place] [address] Care Team Providers Care Voice Over Artist Name Role Phone Unknown, Notinfile Primary Care Provider Unavail able Allergies No known active allergies Medications levonorgestreL (MIRENA) IUD Mirena 20 mcg/24 hours (6 yrs) 52 mg intrauterine device Take by intrauterine route. Active Active Problems Problem Noted Date Diagnosed Date Abnormal findings on diagnostic imaging of breas t 04/02/2021 Encounters Date Type Department Care Team Description 07/18/2024 8:00 AM TOWER OPERATOR Procedure visit [facility] Otolaryngology [address] [place] [address] [place] [id number] Perlita Campos Au.D. Benign paroxysmal positional vertigo, unspecified laterality 07/07/2024 Orders Only [facility] Otolaryngology [address] [place] [address] [place] [id number] Perlita Campos Au.D. Benign paroxysmal positional vertigo, unspecified laterality (Primary Dx) 07/07/2024 Telephone [facility] Otolaryngology [address] [place] [address] [place] [phone] Perlita Campos Au.D. 07/04/2024 8:30 AM TOWER OPERATOR - 07/04/2024 11:59 PM TOWER OPERATOR Hospital Encounter [facility] [address] [id number] Screening mammogram, encounter for Discharge Disposition: Discharge to home or self care from Last 3 Months Surgical History Surgery Date Site/Laterality Comments APPENDECTOMY COLECTOMY PARTIAL / TOTAL DILATION AND CURETTAGE OF UTERUS BREAST BIOPSY 05/29/2020 Left Medical History Medical History Date Comments No pertinent past medical history Family History Medical History Relation Name Comments Liver cancer Mother's Sister Relation Name Status Comments Mother's Sister Social History Tobacco Use Types Packs/Day Years Used Date Smoking Tobacco: Never Comments No Sex and Gender Information Value Date Recorded Sex Assigned at Not on file Legal Sex Female 9:11 AM TOWER OPERATOR Gender Identity Female 04/01/2021 10:27 AM CDT Sexual Orientation Straight 04/01/2021 10 :27 AM CDT Obstetrics History Last Filed Vital Signs Vital Sign Reading Time Taken Comments Blood Pressure 118/88 06/23/2021 12:57 PM TOWER OPERATOR Pulse 88 06/23/2021 12:57 PM TOWER OPERATOR Temperature 36.7 C (98.1 F) 06/23/2021 12:57 PM TOWER OPERATOR Respiratory Rate 16 06/23/2021 12:57 PM TOWER OPERATOR Oxygen Saturation 99% 06/23/2021 12:57 PM TOWER OPERATOR Inhaled Oxygen Concentration - - Weight 81.4 kg (179 lb 6.4 oz) 06/23/2021 12:57 PM TOWER OPERATOR Height 160 cm (5' 3 ) 06/23/2021 12:57 PM TOWER OPERATOR Body Mass Index 31.78 06/23/2021 12:57 PM TOWER OPERATOR Plan of Treatment Health Maintenance Due Date Last Done Comments Cervical Cancer Screening 1979 Colon Cancer Screening-Colonoscopy 1979 Depression Screening 1979 Hepatitis C Screening 1979 Varicella Vaccines (1 of 2 - 13+ 2-dose series) 1992 Hepatitis B Screening 1997 Regular Well Visit/Exam 18-64 1997 Breast Cancer Screening-Mammogram 07/04/2025 07/04/2024, 05/21/2023, 04/17/2022, Additional history exists DTaP/Tdap/Td Vaccine (2 - Td or Tdap) 11/07/2028 11/07/2018 Influenza Vaccine Completed 03/17/2024, 03/27/2020 HPV Vaccines Aged Out No longer eligi ble based on patient's age to complete this topic Pneumococcal vaccine <65 Aged Out No longer eligible based on patient's age to complete this topic Procedures Procedure Name Priority Date/Time Associated Diagnosis Comments SCREENING MAMMOGRAM BILATERAL W OPAL Schedule Routine, Read Routine (OP Routine) 07/04/2024 8:52 AM TOWER OPERATOR Screening mammogram, encounter for from Last 3 Months Results * Screening Mammogram Bilateral W Opal (07/04/2024 8:52 AM TOWER OPERATOR) Anatomical Region Laterality Modality Breast Bilateral Mammography Narrative 07/05/2024 8:29 AM TOWER OPERATOR Mammogram Technique: Bilateral Digital Breast Tomosynthesis, Bilateral C-view 2D Screening mammogram. Views obtained: bilateral craniocaudal and bilateral mediolateral oblique. Computer Aided Detection was performed. Mammogram Findings: The present examination has been compared to prior imaging studies performed at [facility] on 04/17/2022, 05/21/2023 and 06/15/2023. There are [...] compared to prior imaging studies performed at [facility] on 04/17/2022, 05/21/2023 and 06/15/2023. There are scattered areas of fibroglandular density. There is no suspicious abnormality in either breast. Impression: There is no mammographic evidence of malignancy. Annual screening mammography is recommended. OVERALL FINAL ASSESSMENT: BI-RADS CATEGORY 1: Negative. us Self Screening Mammogram IMG MAMMO PROCEDURES Fi nal Result from Last 3 Months Insurance [employer] [place] [employer] [place] Care Teams Voice Over Artist Relationship Specialty Start Date End Date Unknown, Notinfile PCP - General 05/13/23
--- OUTSIDE RECORDS SUMMARY | 2024-08-18 09:33 | XMS_ITS | Patient Health Summary ---
Author Organization [facility] Address [address] [place] [address] Care Team Providers Care Edge Kitter Name Role Phone Bronwyn Love MD Primary Care Provider [phone] Note from [facility],non-owned Affiliates and Associated Physician Practices is amultiple site organization consisting of ambulatory clinics and hospital sitesin [place], [place], [place] and [place]. This disclosure is being madepursuant to the Care Everywhere program and may not contain all information available regarding this patient. Last updated 18.[facility] Allergies No known active allergies Medications * Be aware that medications may not be up to date on this document. Alwaysverify current medications with the patient. * fluticasone propionate (FLONASE) 50 MCG/ACT nasal spray(Started 07/21/2017) [place] 2 sprays into each nostril once daily Active Problems No known active problems Social History Tobacco Use Types Packs/Day Years Used Date Smoking Tobacco: Never Sex and Gender Information Value Date Recorded Sex Assigned at Not on file Gender Identity Not on file Sexual Orientation Not on file Last Filed Vital Signs Vital Sign Reading Time Taken Comments Blood Pressure 102/60 07/30/2017 12:24 PM BIOINFORMATICS ENGINEER Pulse 101 07/30/2017 12:24 PM BIOINFORMATICS ENGINEER Temperature 37.7 C (99.8 F) 07/30/2017 12:24 PM BIOINFORMATICS ENGINEER Respiratory Rate 16 05/06/2016 11:41 AM BIOINFORMATICS ENGINEER Oxygen Saturation 99% 05/06/2016 11:41 AM BIOINFORMATICS ENGINEER Inhaled Oxygen Concentration - - Weight 72.6 kg (160 lb) 07/30/2017 12:24 PM BIOINFORMATICS ENGINEER Height 160 cm (5' 3 ) 07/30/2017 12:24 PM BIOINFORMATICS ENGINEER Body Mass Index 28.34 07/30/2017 12:24 PM BIOINFORMATICS ENGINEER Procedures * INFLUENZA A+B - POINT OF CARE (AMB)(Performed 07/30/2017) Performed for Influenza B * STREP A SCREEN - POINT OF CARE (AMB) STL(Performed 07/30/2017) Performed for Influenza B * STREP A SCREEN - POINT OF CARE (AMB) STL(Performed 07/21/2017) Performed for Nasopharyngitis acute * STREP A SCREEN - POINT OF CARE (AMB) STL(Performed 05/06/2016) Performed for Strep throat Results * STREP A SCREEN - POINT OF CARE (AMB) STL (07/30/2017) Only the most recent of3 resultswithin the time period is included. Strep A Rapid POCT Negative Negative Strep A Internal Control Present Lot # [id number] Expiration Date [address] Throat ENTIRE THROAT (SURFACE REGION OF NECK) / Unknown 07/30/2017 Gisell Watt APRN-CENTERLESS GRINDING MACHINE ADJUSTER LAB - POINT OF CARE ORDERABLES * (ABNORMAL) INFLUENZA A+B - POINT OF CARE (AMB) (07/30/2017) Influenza A Antigen Rapid Negative Negative Influenza B Antigen Rapid Positive(A) Negative Influenza Internal Control yes NEGATIVE - POSITIVE Influenza Lot Number [id number] Influenza Expiration Date 12,220 Other NASOPHARYNGEAL SWAB / Unknown 07/30/2017 Gisell Watt APRN-[employer] [facility] AD[facility] - POINT OF CARE ORDERABLES Care Teams Edge Kitter Relationship Specialty Start Date End Date Bronwyn Love MD PCP - General Family Medicine 05/06/16
== END 2024-08-18 09:08 | disposition home or self-care (01) ==
PROVIDERS: PCP Student in an Organized Health Care Education/Training Program; Visit Provider Student in an Organized Health Care Education/Training Program
DX: R42 Dizziness and giddiness (principal)
CPT/HCPCS: 93242